=== PATIENT | male | born 1985 | race Caucasian/White ===

== ENCOUNTER 2020-10-08 17:30 | Emergency (ER) | payer OTHER ==
[~2020-10-08] VITALS: Ht 182.9 cm; Wt 97.5 kg
[~2020-10-08 17:30] MED LIST: Crutch1 EACH MISC; Percocet 5-3251 EACH PO; Propecia1 MG PO
[2020-10-08] MEDS ORDERED: HYDCHL12.5 PO (17:52)
[2020-10-08] MEDS ORDERED: MELO7.5 PO (17:52)
[2020-10-08] MEDS ORDERED: METOPROLOL SUCC25 MG PO (17:53)
[2020-10-08] MEDS ORDERED: TESTOSTERONE100 GM (17:53)
[2020-10-08] MEDS ORDERED: IBUP800 PO (21:35)
== END 2020-10-08 22:00 | disposition home or self-care (01) ==
LOC: ER 17:30
DX: S16.1XXA Strain of muscle, fascia and tendon at neck level, initial encounter (principal); M25.512 Pain in left shoulder; Z79.899 Other long term (current) drug therapy; Z87.891 Personal history of nicotine dependence; V58.5XXA Driver of pick-up truck or van injured in noncollision transport accident in traffic accident, initial encounter; Y92.410 Unspecified street and highway as the place of occurrence of the external cause
CPT/HCPCS: 71045; 72125; 73000; 73030; 73060; 73070; 96374; 96375; 96376; 99284-25; A9270; J1885; J2270

== ENCOUNTER 2021-01-05 13:25 | Day surgery (SDC) | payer OTHER ==
[~2021-01-05] VITALS: Ht 182.9 cm; Wt 97.4 kg
[~2021-01-05 13:25] MED LIST changes: +HYDCHL12.5 PO; +IBUP800 PO; +LISI20 PO; +MELO7.5 PO; +METOPROLOL SUCC25 MG PO; +TESTOSTERONE100 GM
[2021-01-05] MEDS ORDERED: METO100ER PO (14:38)
== END 2021-01-05 17:30 | disposition home or self-care (01) ==
LOC: ORSCSDS 13:25
PROVIDERS: Orthopaedic Surgery
PROC: 0SQC4ZZ Repair Right Knee Joint, Percutaneous Endoscopic Approach (ICD-10-PCS; principal; 2021-01-05 14:30)
DX: M23.321 Other meniscus derangements, posterior horn of medial meniscus, right knee (principal); M22.41 Chondromalacia patellae, right knee; I10 Essential (primary) hypertension; G47.33 Obstructive sleep apnea (adult) (pediatric); Z79.899 Other long term (current) drug therapy; F17.220 Nicotine dependence, chewing tobacco, uncomplicated
CPT/HCPCS: A9270; C1713; J0171; J0690; J1100; J1885; J2250; J2405; J2704; J2795; J3010; J7120

== ENCOUNTER → 2021-12-13 | Outpatient (CLI) | payer OTHER ==
[~2021-12-13] MED LIST changes: +METO100ER PO
== END | disposition home or self-care (01) ==
LOC: LAB SHORT 11:00
DX: M25.50 Pain in unspecified joint (principal)
CPT/HCPCS: 85651; 86200